=== PATIENT | male | born 1985 | race Caucasian/White ===

== ENCOUNTER → 2018-08-10 | Outpatient (CLI) | payer OTHER ==
[~2018-08-10] MED LIST: ALBU8.5H8 INH; AMOX1TAB64 PO; CODE10LI PO; IBUP200T64 PO; MULT-642 PO; ONDA4TAB7 PO; OXYC5TAB2 PO
== END | disposition home or self-care (01) ==
LOC: STAR 13:41
PROVIDERS: ATTEND Surgery
DX: Z02.9 Encounter for administrative examinations, unspecified (principal)

== ENCOUNTER 2018-08-17 08:14 | Day surgery (SDC) | payer OTHER ==
[~2018-08-17] VITALS: Ht 182.9 cm; Wt 92.3 kg
[~2018-08-17 08:14] MED LIST changes: -ALBU8.5H8 INH; +BUPIVACAINE/PF-EPI 0.5% 1:200K ONE
[2018-08-17] MEDS ORDERED: LACTATED RINGERS 1,000 ML IV SCH (08:41)
[2018-08-17 08:43] VITALS: BP 105/69
[2018-08-17] MEDS ORDERED: LORazepam 2 MG/ML, 1ML ONE (08:52)
[2018-08-17] MEDS ORDERED: ACETAMINOPHEN 500 MG TABLET PO ONE (09:00)
[2018-08-17] MEDS ORDERED: LIDOCAINE-MPF 1%, 2ML INFIL ONE (09:00)
[2018-08-17] MEDS ORDERED: LORazepam 2 MG/ML, 1ML IVPush ONE (09:00)
[2018-08-17] MEDS ORDERED: GABAPENTIN 300 MG CAPSULE PO ONE (09:00)
[2018-08-17] MEDS ORDERED: FAMOTIDINE 20 MG/2 ML IVPush ONE (09:00)
[2018-08-17] MEDS ORDERED: ALBU8.5H8 INH (09:14)
[2018-08-17] MEDS ORDERED: FENTANYL PF 250 MCG/5ML ONE (09:19)
[2018-08-17] MEDS ORDERED: MIDAZOLAM 1 MG/ML, 2ML ONE (09:19)
[2018-08-17] MEDS ORDERED: ACETAMINOPHEN 325 MG TABLET PO PRN (10:00)
[2018-08-17] MEDS ORDERED: ONDANSETRON 2MG/ML, 2ML IV PRN (10:00)
[2018-08-17] MEDS ORDERED: PROMETHAZINE 25 MG/ML, 1ML IV PRN (10:00)
[2018-08-17] MEDS ORDERED: ONDANSETRON ODT 8 MG PO PRN (10:00)
[2018-08-17] MEDS ORDERED: HYDROmorphone 2 MG/ML, 1ML IVPush PRN (10:00)
[2018-08-17] MEDS ORDERED: DIAZEPAM 5 MG/ML, 2ML IVPush PRN (10:00)
[2018-08-17] MEDS ORDERED: MEPERIDINE/PF 100 MG/ML ONE (10:00)
[2018-08-17] MEDS ORDERED: FENTANYL PF 100 MCG/2ML IV PRN (10:00)
[2018-08-17] MEDS ORDERED: MEPERIDINE/PF 25MG/0.5ML IVPush PRN (10:00)
[2018-08-17] MEDS ORDERED: PROPOFOL 10 MG/ML, 20ML ONE (10:14)
[2018-08-17] MEDS ORDERED: NEOSTIGMINE 1 MG/ML, 10ML ONE (10:14)
[2018-08-17] MEDS ORDERED: CEFAZOLIN 1,000 MG ONE (10:14)
[2018-08-17] MEDS ORDERED: ONDANSETRON 2MG/ML, 2ML ONE (10:14)
[2018-08-17] MEDS ORDERED: SUCCINYLCHOLINE 20 MG/ML, 10ML ONE (10:14)
[2018-08-17] MEDS ORDERED: GLYCOPYRROLATE 0.2MG/1ML, 5ML ONE (10:14)
[2018-08-17] MEDS ORDERED: DEXAMETHASONE 4 MG/ML, 1ML ONE (10:14)
[2018-08-17] MEDS ORDERED: ROCURONIUM 10MG/ML,5ML ONE (10:14)
[2018-08-17] MEDS ORDERED: morphine SULFATE 10 MG/ML, 1ML IVPush PRN (10:30)
[2018-08-17] MEDS ORDERED: ONDANSETRON 2MG/ML, 2ML IVPush PRN (10:30)
[2018-08-17] MEDS ORDERED: KETOROLAC 30 MG/1 ML IVPush PRN (10:30)
[2018-08-17] MEDS ORDERED: OXYcodone/APAP 5/325MG TABLET PO PRN (10:30)
[2018-08-17] MEDS ORDERED: OXYcodone 5 MG/5 ML ORAL.SOL UDC ONE (11:18)
[2018-08-17] MEDS: OXYcodone 5 MG/5 ML ORAL.SOL UDC PO PRN ×2 (11:20→14:53)
[2018-08-17] MEDS ORDERED: FENTANYL PF 100 MCG/2ML ONE (11:24)
[2018-08-17] MEDS ORDERED: KETOROLAC 30 MG/1 ML ONE (11:38)
== END 2018-08-17 15:45 | disposition home or self-care (01) ==
LOC: OUT 08:14
PROVIDERS: ATTEND Surgery
DX: K35.33 Acute appendicitis with perforation, localized peritonitis, and gangrene, with abscess (principal)
CPT/HCPCS: 44970; 88304; J0330; J0690; J1100; J1885; J2060; J2250; J2405; J2704; J2710; J3010; J3490; J7120; J2175